=== PATIENT | female | born 1980 | race Caucasian/White ===

== ENCOUNTER → 2017-11-10 18:22 | Outpatient (CLI) | payer OTHER, SELFPAY ==
[2017-11-09 16:43] LABS: Basophils # 0.1 K/mm3 (0-0.2); Basophils % 0.8 % (0.1-2.0); Eosinophils # 0.1 K/mm3 (0.0-0.4); Eosinophils % 0.8 % (0.1-12.0); Hematocrit 42.3 % (37.0-47.0); Hemoglobin 14.6 g/dL (12.2-16.2); Lymphocytes # 2.2 K/mm3 (0.7-4.5); Lymphocytes % 16.8 K/mm3 (10-50); Mean Corpuscular HGB Conc 34.5 g/dL (31.8-35.4); Mean Corpuscular Hemoglobin 29.4 pg (27.0-31.2); Mean Corpuscular Volume 85.3 fl (81-99); Mean Platelet Volume 8.1 fl (7.4-10.4); Monocytes # 0.4 K/mm3 (0.1-1.0); Monocytes % 3.1 % (1.7-9.3); Neutrophils # 10.3 K/mm3 (1.8-7.8); Neutrophils % 78.5 % (37.0-80.0); Platelet Count 242 K/mm3 (142-424); Red Blood Count 4.96 M/mm3 (4.20-5.40); White Blood Count 13.2 K/mm3 (4.8-10.8)
[2017-11-12 08:48] LABS: Hepatitis B Surface Antigen Negative (Negative); Hepatitis C Antibody <0.1 s/co ratio (0.0-0.9); Rapid Plasma Reagin Ab Titer Non Reactive (NonRea<1:1); Rubella Antibodies, IgG 2.89 index (Immune >0.99)
== END ==
PROVIDERS: Family Provider Family Medicine; PCP Internal Medicine Adolescent Medicine; Visit Provider Nurse Practitioner Obstetrics & Gynecology
DX: Z34.90 Encounter for supervision of normal pregnancy, unspecified, unspecified trimester (principal)
CPT/HCPCS: 85025; 86592; 86762; 86850; 87340; 87380

== ENCOUNTER → 2017-11-18 14:16 | Outpatient (CLI) | payer OTHER, SELFPAY ==
--- NOTE | 2017-11-18 14:20 | US_ITS ---
US OB transvaginal CLINICAL INDICATION: ITS.REASON: US OB-Dates ORDERING PHYSICIAN: Bruce Neri MD PATIENT AGE: 37 years COMPARISON: None FINDINGS: There is a viable intrauterine gestation. heart and body motion noted with an FHR of 1 51 bpm. Average ultrasound age is 13 weeks 3 days with estimated due date by ultrasound of 05/23/2018. BPD 13 weeks 5 days. HC 30 weeks 3 days. Abdominal circumference 13 weeks 3 days. FL 13 weeks 0 days. Estimated weight is 71 g which is 80th percentile based on last menstrual period Placenta is anterior and low. No obvious anomalies. This DOES NOT suffice as a 20 week anatomy scan. Right ovary contains a complex 3.8 x 2.8 cm cyst probably related to corpus luteum cyst. IMPRESSION: Live intrauterine gestation at 13 weeks 3 days with estimated due date by ultrasound of 05/23/2018.
== END ==
PROVIDERS: Family Provider Family Medicine; PCP Internal Medicine Adolescent Medicine; Visit Provider Nurse Practitioner Obstetrics & Gynecology
DX: O26.841 Uterine size-date discrepancy, first trimester (principal)
CPT/HCPCS: 76830

== ENCOUNTER → 2018-01-05 12:56 | Outpatient (CLI) | payer OTHER, SELFPAY ==
--- NOTE | 2018-01-05 12:59 | US_ITS ---
US OB /maternal detail: INDICATION: ITS.REASON: US OB Complete ORDERING PHYSICIAN: Bruce Neri MD PATIENT AGE: 37 years TECHNIQUE: ultrasound transabdominal scanning. COMPARISON: No previous relevant studies. FINDINGS: Single viable intrauterine gestation. Variable, but ended in Cephalic position. Placenta: Anterior placenta grade 1. There is adequate amount fluid. The cervix appears closed. Complete survey performed and was unremarkable on the submitted images as in PACS. No discrete anomalies identified on survey imaging by technologist. Active fetus. Three-vessel cord with satisfactory umbilical cord insertion. 4- chamber heart noted. Survey of brain & ventricles. Face and neck survey unremarkable. Diaphragm and chest views unremarkable. Abdomen: Both kidneys noted and unremarkable. Stomach noted and satisfactory. Spine: Survey of the spine satisfactory with no anomalies identified nor imaged. Both arms and legs noted. Amniotic Fluid: Adequate. Maternal adnexa: No significant findings. Measurements: Average ultrasound age 20w0d. Gestational Age 20w2d. Estimated due date by ultrasound age 0805/25/2018. Estimated weight 341 grams. This is 42nd percentile based on last menstrual period BPD = 19w4d OFD = 20w3d HC = 19w2d AC = 21w4d FL = 19w1d Heart Rate = 161 Cerebellum = 20w2d Humerus = 20w3d HC/AC is 1.01 (1.09-1.26). CI is 75% (70-86%). FL/BPD is 66%. FL/AC is 18%. IMPRESSION: Live intrauterine gestation with an average ultrasound age of 20 weeks and 0 days as described above. No obvious anomalies. Please see above for detail
== END ==
PROVIDERS: Family Provider Family Medicine; PCP Nurse Practitioner Family; Visit Provider Nurse Practitioner Obstetrics & Gynecology
DX: Z36.0 Encounter for antenatal screening for chromosomal anomalies (principal)
CPT/HCPCS: 76811

== ENCOUNTER → 2018-03-31 14:25 | Outpatient (CLI) | payer OTHER, SELFPAY ==
--- NOTE | 2018-03-31 | US_ITS ---
US OB biophysical profile, US OB follow up, US SD Ratio umbilical artery: Indication: Large for gestational age ITS.REASON: US OB- BPP Growth- LGA ORDERING PHYSICIAN: Winnie Cohen MD PATIENT AGE: 38 years COMPARISON: 01/05/2018 FINDINGS: There is a single live fetus present which is in cephalic presentation. heart and breathing motion noted. The following parameters are obtained: Average ultrasound age is 34w1d . Estimated due date by ultrasound is 05/11/2018. Estimated weight is 2613g. This is 98 percentile based on estimated due date BPD: 34w5d OFD: 33w2d HC: 33w4d AC: 38w0d FL: 29w6d heart rate: 132 bpm. HC/AC: 0.89 (0.96-1.17) Cephalic index: 81% (70-86%) FL/BPD: 66% (71-87%) FL/AC: 17% (20-24%) Amniotic fluid index: 25.97 cm Qualitative AFV: 2 breathing movements: 2 Gross body movements: 2 Tone: 2 Biophysical profile score: 8/8 Doppler evaluation of the umbilical artery: SD ratio: 2.7 Resistive index: 0.64 Placenta: Anterior G1 IMPRESSION: 1. Polyhydramnios with an JAYRO of 26 cm 2. Large for gestational age with a weight of 2613 g which is 98 percentile based on estimated due date. 3. Measurements are not concordant. Abdominal circumference 38 weeks. Femur length 29 weeks 6 days. BPD 34 weeks 5 days 4. Biophysical profile is 8 of 8. Umbilical artery evaluation unremarkable.
== END ==
PROVIDERS: Nurse Practitioner Obstetrics & Gynecology; Family Provider Family Medicine; PCP Nurse Practitioner Family; Visit Provider Obstetrics & Gynecology
DX: O36.63X0 Maternal care for excessive fetal growth, third trimester, not applicable or unspecified (principal)
CPT/HCPCS: 76816; 76819; 76820; 80307

== ENCOUNTER 2018-04-10 15:51 | Inpatient (IN) ==
[2018-04-10 16:47] LABS: Basophils # 0.1 K/mm3 (0-0.2); Basophils % 0.4 % (0.1-2.0); Eosinophils # 0.1 K/mm3 (0.0-0.4); Eosinophils % 0.6 % (0.1-12.0); Hematocrit 36.4 % (37.0-47.0); Hemoglobin 11.8 g/dL (12.2-16.2); Lymphocytes # 2.3 K/mm3 (0.7-4.5); Lymphocytes % 13.5 K/mm3 (10-50); Mean Corpuscular HGB Conc 32.3 g/dL (31.8-35.4); Mean Corpuscular Hemoglobin 27.9 pg (27.0-31.2); Mean Corpuscular Volume 86.2 fl (81-99); Mean Platelet Volume 9.1 fl (7.4-10.4); Monocytes # 0.7 K/mm3 (0.1-1.0); Monocytes % 4.2 % (1.7-9.3); Neutrophils # 14.1 K/mm3 (1.8-7.8); Neutrophils % 81.4 % (37.0-80.0); Platelet Count 327 K/mm3 (142-424); Red Blood Count 4.23 M/mm3 (4.20-5.40); Red Cell Distribution Width 17.2 % (11.5-17.5); White Blood Count 17.3 K/mm3 (4.8-10.8)
[2018-04-10 17:17] LABS: Eosinophils % 2 % (0-3); Lymphocytes % 9 % (10-50); Monocytes % 3 % (2-9); Neutrophils % 86 % (42-76); RBC Morphology Normal; Total Cells Counted 100
--- NOTE | 2018-04-10 18:30 | Procedure Note ---
- Delivery Note Delivery Date:: 04/10/18 Delivery Time:: 17:35 Anesthesia Type: None Was labor medically induced?: No Gestational age (weeks): 33 delivered prior to 39 weeks?: Yes Justification for early elective delivery:: Active Labor, Gestational Diabetes, Polydraminos Infant Gender: Male at 1 minute: 8 at 5 minutes: 8 Suction Catheter Type: [place] AF:: Bloody and thin meconium-stained Delivery Procedure:: This 38-year-old 6, now para 4, AB 2 white female is admitted at 1630 at 33-5/7 weeks in active labor at 7 cm of dilatation. She has been followed by Dr. Neri for care, but also by the [facility] (Dr. Newell) because of gestational diabetes and known polyhydramnios. She states that she was last seen at [facility] 2 weeks ago, at which time she was told the baby weighed over 8 pounds. Her blood sugar on admission was 186, which is normal for her. She states that she has been ray since midnight, and contractions were noted on the monitor. A pelvic exam revealed her cervix to be completely effaced, 7 cm dilated, with a bulging bag of water and a presenting vertex. Upon my arrival variability had decreased, and she had oxygen in place. She was asking for an epidural, but was told that it was unlikely that could be carried out in time for her delivery. Nonetheless, anesthesia was called. In addition, Dr. Rocha (hygiene coordinator), was called to be present at delivery. Upon my arrival she was 8 cm dilated. Because of decreased variability was felt that an internal monitor was called for, and so a controlled amniotomy was carried out, with the exudation of a large amount ( over 2 L) of meconium tinged, bloody fluid. The hand remained in the vagina until the vertex settled into the pelvis. By that time she was 9 cm dilated. The internal monitor was placed, and an attempt was made to carry out her epidural, but this was unsuccessful because she was unable to fully cooperate due to her discomfort. After that attempt she was found to be completely dilated with the presenting vertex at 0 station. She was placed in stirrups and delivered spontaneously with 2 pushes. There was no nuchal cord. The baby's nasal and oropharynx were bulb suctioned, and then DeLee suctioned for minimal return. The baby cried spontaneously on the perineum, as it was delivered at 1735. The placenta delivered spontaneously the cord was clamped and cut, 3 vessels were noted to be within the cord, and cord blood was obtained. The cord pH was 7.27. The baby was handed into the arms of the attending hygiene coordinator, Dr. Rocha, who noticed a foul odor and asked about the possibility of chorioamnionitis. The patient had been afebrile since admission , and remained so. The placenta delivered spontaneously, intact, at 1737. It was quite large and sclerotic, and was submitted to pathology. The total time in labor was [address] Rocha is attending the baby, who is stable at this time. scores were 8 at 1 minute and 8 at 5 minutes. The baby weighed 7 lbs. 3 oz., and was 18.5 inches long. The uterus was inspected and was felt to be clean, and was involuting well, with IV Pitocin running. There were no lacerations. The rectovaginal septum was intact at the close of the procedure. The sponge and needle counts were correct. The estimated blood loss (not counting amniotic fluid) was 350 cc. It should be noted that a large amount of amniotic fluid preceded and then followed delivery, making the total volume of polyhydramnios at least 3 L. The patient tolerated the procedure well , and was recovered in excellent condition. Her blood type is A+. Her rubella titer is immune. She plans to bottle feed. Placental Delivery Description: Spontaneous
[2018-04-10 18:58] VITALS: BP 127/82
[2018-04-10 20:56] LABS: Microscopic, Urine URINE MICROSCOPIC (MICROSCOPIC)
[2018-04-10 21:11] LABS: Appearance,Urine TURBID (Clear); Blood, Urine 3+ (Negative); Color,Urine BROWN (Yellow); Glucose,Urine (UA) 3+ (Negative); Ketones,Urine 2+ (Negative); Leukocyte Esterase,Urine Negative (Negative); Protein,Urine 2+ (Negative); Specific Gravity, Urine >= 1.030 (1.005-1.030)
[2018-04-10 21:13] LABS: Amphetamine/Metha Screen,Urine Negative ng/mL (<1000); Barbiturates Screen,Urine Negative ng/mL (<200); Benzodiazepines Screen,Urine Negative ng/mL (200); Cannabinoid Screen,Urine Negative ng/mL (<50); Cocaine Screen,Urine Negative ng/g (<300); Methadone Screen,Urine Negative ng/mL (<300); Opiate Screen,Urine Negative ng/mL (<300); Phencyclidine Screen,Urine Negative ng/mL (<25)
[2018-04-10 21:14] LABS: Bilirubin,Urine 2+ (Negative); RBC,Urine TNTC #/hpf (0-3); WBC,Urine Occasional #/hpf (0-3)
[2018-04-11 06:36] LABS: Hematocrit 27.7 % (37.0-47.0)
--- NOTE | 2018-04-11 08:18 | Progress Note ---
Internal Medicine - PN: Subj *Date: 04/11/18 *Time: 08:15 (This is day #1. The patient is afebrile. Her vital signs are stable. Lochia is normal. Uterine fundus involuting well. Her glucose this morning is 216, but she states that this is normal for her. Clinically she is doing well. The baby was transferred to NICU during the night, and the patient is anxious to be discharged early to attend the baby. She will in fact be discharged this morning.) Exam Vital signs and Labs for Last 24 Hours: Temp Pulse Resp BP Pulse Ox 98.7 F 120 H 22 127/82 97 04/10/18 15:59 04/10/18 15:59 04/10/18 15:59 04/10/18 15:59 04/10/18 15:59 Laboratory Results - last 24 hr 04/10/18 16:38: WBC 17.3 H, RBC 4.23, Hgb 11.8 L, Hct 36.4 L, MCV 86.2, MCH 27.9 , MCHC 32.3, RDW 17.2, Plt Count 327, MPV 9.1, Neut % (Auto) 81.4 H, Lymph % ( Auto) 13.5, [place] % (Auto) 4.2, Eos % (Auto) 0.6, Baso % (Auto) 0.4, Neut # (Auto ) 14.1 H, Lymph # (Auto) 2.3, [place] # (Auto) 0.7, Eos # (Auto) 0.1, Baso # (Auto ) 0.1, Total Counted 100, Neutrophils % (Manual) 86 H, Lymphocytes % (Manual) 9 L, Monocytes % (Manual) 3, Eosinophils % (Manual) 2, Platelet Estimate Normal, RBC Morphology Normal 04/10/18 16:38: Blood Type A Positive, Antibody Screen Negative 04/10/18 16:48: POC Glucose 186 H 04/10/18 20:15: Urine Color Brown, Urine Appearance Turbid, Urine pH 6.0, Ur Specific [place] >= 1.030, Urine Protein 2+, Urine Glucose (UA) 3+, Urine Ketones 2+, Urine Blood 3+, Urine Nitrate Positive, Urine Bilirubin 2+ A, Urine Urobilinogen 2.0, Ur Leukocyte Esterase Negative, Urine RBC Tntc, Urine WBC Occasional, Ur Renal Epithelial Cell 5-10 04/10/18 20:15: Urine Opiates Screen Negative, Ur Barbituates Screen Negative, Ur Phencyclidine Scrn Negative, Ur Amphetamines Screen Negative, U Methamphetamines Scrn Negative, U Benzodiazepines Scrn Negative, Urine Cocaine Screen Negative, U Marijuana (THC) Screen Negative 04/10/18 21:17: POC Glucose 310 H* 04/11/18 06:25: Hgb 10.0 L D, Hct 27.7 L 04/11/18 07:34: POC Glucose 216 H I & O for Last 24 hours: Intake & Output 04/08/18 04/09/18 04/10/18 04/11/18 11:59 11:59 11:59 11:59 Weight 252 lb
--- NOTE | 2018-04-11 08:23 | Discharge Summary ---
General - General Admission date:: 04/10/18 Discharge date: 04/11/18 (This 38-year-old 6, now para 4, AB 2 white female was admitted at 33-5/7 weeks in active labor at 7 cm of dilatation. She was known to have polyhydramnios and is a type II diabetic. Glucose on admission was 186. Please refer to her delivery note for the details of that event. She delivered vaginally, without an episiotomy, at 1735 on 04/10/18. The baby was an 8/8, 7 lbs. 3 oz., 18.5 inch male , who has since been transferred to [facility] because of retractions and low blood sugar. There was a significant amount of amniotic fluid (greater than 3 L). The delivery was attended by Dr. Rocha. The patient's blood type is A+. Her rubella titer is immune. She plans to bottle feed. She is not a smoker. Because of the venous transfer, the patient is anxious for early discharge. She is clinically stable. Her uterine fundus is involuting well. Her lochia is normal. Her hemoglobin is 10.0 g, but she is clinically stable from that standpoint. Her blood sugar this morning is 216. She is discharged home, and to attend the baby , on iron and vitamins. She is to resume her normal insulin dosing and to follow-up with her primary care provider with regard to that. She is given appropriate instructions as to diet and exercise, and she is to follow-up with Dr. Neri in 2 weeks.) Objective Vital signs: Temp Pulse Resp BP Pulse Ox 98.7 F 120 H 22 127/82 97 04/10/18 15:59 04/10/18 15:59 04/10/18 15:59 04/10/18 15:59 04/10/18 15:59 Results Labs on day of discharge: Labs from last 24 hours 04/11/18 04/11/18 04/10/18 07:34 06:25 21:17 WBC RBC Hgb 10.0 L D Hct 27.7 L MCV MCH MCHC RDW Plt Count MPV Neut % (Auto) Lymph % (Auto) [place] % (Auto) Eos % (Auto) Baso % (Auto) Neut # (Auto) Lymph # (Auto) [place] # (Auto) Eos # (Auto) Baso # (Auto) Total Counted Neutrophils % (Manual) Lymphocytes % (Manual) Monocytes % (Manual) Eosinophils % (Manual) Platelet Estimate RBC Morphology Cord ABG pH POC Glucose 216 H 310 H* Urine Color Urine Appearance Urine pH Ur Specific [place] Urine Protein Urine Glucose (UA) Urine Ketones Urine Blood Urine Nitrate Urine Bilirubin Urine Urobilinogen Ur Leukocyte Esterase Urine RBC Urine WBC Ur Renal Epithelial Cell Urine Opiates Screen Ur Barbituates Screen Ur Phencyclidine Scrn Ur Amphetamines Screen U Methamphetamines Scrn U Benzodiazepines Scrn Urine Cocaine Screen U Marijuana (THC) Screen Blood Type Antibody Screen 04/10/18 04/10/18 04/10/18 20:15 20:15 18:03 WBC RBC Hgb Hct MCV MCH MCHC RDW Plt Count MPV Neut % (Auto) Lymph % (Auto) [place] % (Auto) Eos % (Auto) Baso % (Auto) Neut # (Auto) Lymph # (Auto) [place] # (Auto) Eos # (Auto) Baso # (Auto) Total Counted Neutrophils % (Manual) Lymphocytes % (Manual) Monocytes % (Manual) Eosinophils % (Manual) Platelet Estimate RBC Morphology Cord ABG pH Pending POC Glucose Urine Color Brown Urine Appearance Turbid Urine pH 6.0 Ur Specific [place] >= 1.030 Urine Protein 2+ Urine Glucose (UA) 3+ Urine Ketones 2+ Urine Blood 3+ Urine Nitrate Positive Urine Bilirubin 2+ A Urine Urobilinogen 2.0 Ur Leukocyte Esterase Negative Urine RBC Tntc Urine WBC Occasional Ur Renal Epithelial Cell 5-10 Urine Opiates Screen Negative Ur Barbituates Screen Negative Ur Phencyclidine Scrn Negative Ur Amphetamines Screen Negative U Methamphetamines Scrn Negative U Benzodiazepines Scrn Negative Urine Cocaine Screen Negative U Marijuana (THC) Screen Negative Blood Type Antibody Screen 04/10/18 04/10/18 04/10/18 16:48 16:38 16:38 WBC 17.3 H RBC 4.23 Hgb 11.8 L Hct 36.4 L MCV 86.2 MCH 27.9 MCHC 32.3 RDW 17.2 Plt Count 327 MPV 9.1 Neut % (Auto) 81.4 H Lymph % (Auto) 13.5 [place] % (Auto) 4.2 Eos % (Auto) 0.6 Baso % (Auto) 0.4 Neut # (Auto) 14.1 H Lymph # (Auto) 2.3 [place] # (Auto) 0.7 Eos # (Auto) 0.1 Baso # (Auto) 0.1 Total Counted 100 Neutrophils % (Manual) 86 H Lymphocytes % (Manual) 9 L Monocytes % (Manual) 3 Eosinophils % (Manual) 2 Platelet Estimate Normal RBC Morphology Normal Cord ABG pH POC Glucose 186 H Urine Color Urine Appearance Urine pH Ur Specific [place] Urine Protein Urine Glucose (UA) Urine Ketones Urine Blood Urine Nitrate Urine Bilirubin Urine Urobilinogen Ur Leukocyte Esterase Urine RBC Urine WBC Ur Renal Epithelial Cell Urine Opiates Screen Ur Barbituates Screen Ur Phencyclidine Scrn Ur Amphetamines Screen U Methamphetamines Scrn U Benzodiazepines Scrn Urine Cocaine Screen U Marijuana (THC) Screen Blood Type A Positive Antibody Screen Negative Discharge Plan - Patient Discharge Instructions - Follow up Plan Home Medications: Home Medications Medication Instructions Recorded Confirmed Type Insulin Glargine,Hum.rec.anlog 10 units SQ DAILY 04/11/18 04/11/18 History [Basaglar Kwikpen U-100] Prescriptions/Medication Reconciliation: No Action Insulin Glargine,Hum.rec.anlog [Basaglar Kwikpen U-100] 10 units SQ DAILY
== END 2018-04-11 09:20 | disposition home or self-care (01) ==
LOC: OBOUT 15:51 → OB 15:53
PROVIDERS: ADMIT Obstetrics & Gynecology; ATTEND Obstetrics & Gynecology

== ENCOUNTER → 2018-05-31 10:13 | Outpatient (CLI) | payer OTHER, SELFPAY ==
[2018-05-31 10:30] LABS: Basophils # 0.1 K/mm3 (0-0.2); Basophils % 0.9 % (0.1-2.0); Eosinophils # 0.3 K/mm3 (0.0-0.4); Eosinophils % 2.6 % (0.1-12.0); Hematocrit 40.2 % (37.0-47.0); Hemoglobin 13.1 g/dL (12.2-16.2); Lymphocytes % 16.1 K/mm3 (10-50); Mean Corpuscular HGB Conc 32.5 g/dL (31.8-35.4); Mean Corpuscular Hemoglobin 27.2 pg (27.0-31.2); Mean Corpuscular Volume 83.9 fl (81-99); Mean Platelet Volume 7.1 fl (7.4-10.4); Monocytes # 0.5 K/mm3 (0.1-1.0); Monocytes % 3.7 % (1.7-9.3); Neutrophils # 9.5 K/mm3 (1.8-7.8); Neutrophils % 76.6 % (37.0-80.0); Platelet Count 370 K/mm3 (142-424); Red Blood Count 4.79 M/mm3 (4.20-5.40); White Blood Count 12.4 K/mm3 (4.8-10.8)
[2018-05-31 10:49] LABS: Anion Gap 12.3 mEq/L (5-15); Blood Urea Nitrogen 16 mg/dL (7-18); Calcium 9.1 mg/dL (8.5-10.1); Carbon Dioxide 29 mmol/L (21.0-32.0); Chloride 102 mmol/L (98-107); Creatinine,Serum 0.78 mg/dL (0.55-1.02); Estimated Glomerular Filt Rate 84 ml/min (>60); GFR (African American) 101 ML/MIN (>60); Glucose 235 mg/dL (74-106); HCG Qualitative, Serum Negative (Negative); Potassium 4.3 mmoL/L (3.5-5.1); Sodium 139 mmol/L (136-145)
== END ==
PROVIDERS: Visit Provider Nurse Practitioner Obstetrics & Gynecology
DX: Z01.818 Encounter for other preprocedural examination (principal)
CPT/HCPCS: 36415; 80048; 84703; 85025